=== PATIENT | male | born 2005 | race Two or more races ===

== ENCOUNTER 2025-07-12 21:20 | Emergency (ER) | payer MEDICAID, SELFPAY ==
[2025-07-12 21:22] VITALS: BMI 20.3
[2025-07-12 21:27] VITALS: BP 140/85; PULSE 110; RESP 18; TEMP 36.8; O2SAT 100
--- NOTE | 2025-07-12 21:31 | EKG_ITS ---
[facility] Test Date: 2025-07-12 Pat Name: KELVIN GREENE Department: Room: - Gender: Male [employer] Operator: : 2005 Requested By: Wilbur Cook Order Number: [id number] Reading MD: Wilbur Cook Measurements Intervals [place] Rate: 117 P: 75 CA: 140 QRS: 101 QRSD: 97 T: -9 QT: 340 QTc: 476 Interpretive Statements SINUS TACHYCARDIA RIGHT AXIS DEVIATION [QRS AXIS > 100] INCOMPLETE RIGHT BUNDLE BRANCH BLOCK [90+ ms QRS DURATION, TERMINAL R IN V1/V2, 40+ ms S IN I/aVL/V4/V5/V6] MODERATE T-WAVE ABNORMALITY, CONSIDER INFERIOR ISCHEMIA [-0.1+ mV T-WAVE IN II/aVF] No previous ECG available for comparison /store/S0/[id number]/[id number].pdf
--- NOTE | 2025-07-12 21:43 | PD.EDANX ---
ED Anxiety RME/HPI General Chief Complaint: General Adult/Misc Complain Stated Complaint: CHEST AREA PAIN, HX. ANXIETY Time Seen by Provider: 07/12/25 21:41 Arrival date/time: 07/12/25 21:20 20M with history of anxiety (on hydroxyzine) presents to ED with chest pain and panic attack, intermittently for several weeks. Separately, patient has had several days of cough and congestion. Limitations: no limitations Related Data Previous Rx's ?Medication ?Instructions ?Recorded ibuprofen 600 mg tablet 600 mg PO Q8H PRN fever or pain 04/16/21 #30 tabs Allergies Allergy/AdvReac Type Severity Reaction Status Date / Time No Known Allergies Allergy Verified 07/12/25 21:21 Review of Systems Review of Systems Systems Reviewed: All systems reviewed, normal except as documented ENT Ears, Nose, Mouth, and Throat: Reports as per HPI and Reports nasal congestion Cardiovascular Cardiovascular: Reports as per HPI and Reports chest pain Respiratory Respiratory: Reports as per HPI and Reports cough Psychiatric Psychiatric: Reports as per HPI and Reports panic attacks Past Medical History Past Medical History CARDIAC: Negative Congestive Heart Failure RESPIRATORY: Negative Chronic Obstructive Pulmonary Disease (COPD) GENITOURINARY: Negative Renal Disease ENDOCRINE: Negative Diabetes Mellitus Type 1 or Diabetes Mellitus Type 2 Social History SMOKING STATUS: Never smoker ED Exam General Limitations: Present no limitations General appearance: Present alert and anxious Head Head exam: Present atraumatic Neck Neck exam: Present normal inspection, full ROM and trachea midline Chest Chest inspection: Present normal inspection and symmetric chest wall rise Respiratory Respiratory exam: Present normal lung sounds bilaterally Cardiovascular Cardiovascular exam: Present normal rhythm, tachycardia and normal heart sounds Neurological Exam Neurological exam: Present alert and oriented X3 Psychiatric Psychiatric exam: Present normal affect and anxious Skin Skin exam: Present warm, dry, intact and normal color Course Quality Measures none Orders Category Date Time Status Bedside COVID-19 Antigen Test NOW Care 07/12/25 21:42 Active EKG (ED ONLY) *Do not use* NOW Care 07/12/25 21:31 Active EKG (ED Only) Stat Exams 07/12/25 21:31 Ordered Diazepam [Valium] Med 07/12/25 21:42 Once 5 mg PO X1 ONE Vital Signs Vital signs: Vital Signs Temperature 98.2 F 07/12/25 21:27 Pulse Rate 110 H 07/12/25 21:27 Respiratory Rate 18 07/12/25 21:27 Blood Pressure 140/85 H 07/12/25 21:27 Pulse Oximetry (%) 100 07/12/25 21:27 Oxygen Delivery Method Room Air 07/12/25 21:27 Anxiety MDM Narrative MDM Narrative: 20M with history of anxiety (on hydroxyzine) presents to ED with chest pain and panic attack, intermittently for several weeks. Separately, patient has had several days of cough and congestion. Physical exam reveals clear lungs and normal WOB. Patient is afebrile, alert, but very anxious. EKG is sinus tach of 117. CXR unremarkable. Valium improved symptoms. HR reduced to WNLs upon reassessment. Patient data External records reviewed:: [facility] previous records Clinical information provided by:: patient Social determinants that could affect healthcare access:: mental health Patient has the following chronic illnesses:: anxiety How is presenting disease/condition affected by chronic disease/condition?: exacerbated by Evaluation data The following diagnostics were reviewed and interpreted by me:: lab results and EKG tracing(s) Lab and/or radiology exams considered but not ordered:: ordered Interpretation Summary: above Medications / Prescriptions Medications or Prescriptions considered but not ordered:: ordered Medication administrations:: Medication Administration History Diazepam (Diazepam 5 Mg Tablet) 5 mg PO X1 ONE Stop: 07/12/25 21:43 Consultations Consultation(s) initiated? (list below): No Diagnosis Differential diagnosis anxiety: hyperventilation, panic disorder, acute anxiety and other (URI) Most likely diagnosis given after review of the tests above:: panic attack Admission Indicated Admission indicated?: not indicated Admission Request Was there a request for admission?: No Disposition Plan Disposition Plan: Discharge Discharge Attestation Discharge Attestation: The patient and all family members were given an opportunity to ask questions and understood the discharge instructions. Discharge instructions specifically effects, indications for sooner follow up or return to the emergency department, and the expected course of current diagnosis. Patient condition: Stable Discharge Plan Plan Patient Disposition: HOME (Self Care) Discharge Disposition comment: Stable Prescriptions/Referrals Prescriptions/Med Rec: No Action ibuprofen 600 mg tablet 600 mg PO Q8H PRN (Reason: fever or pain) Qty: 30 0RF Referrals: No Primary/Family,Physician [Primary Care Provider] - In 1 week Problem List Clinical Impression: Panic attack Patient/Caregiver Discharge Instructions Education Materials: Panic Disorder Tx Additional Instructions: Please follow-up with PCP within 24-48 hours and return immediately if symptoms worsen. Print Language: Hungarian Stand Alone Forms: Patient Portal Info Letter PA/RESEARCH STUDY ASSISTANT Supervising Physician PA/RESEARCH STUDY ASSISTANT Supervising Physician: Dr. Bennett
--- NOTE | 2025-07-12 22:02 | XR_ITS ---
Examination: PA lateral chest 2 views Technique: Upright PA lateral chest 2 views Date and time: July 12, 2025 1054 hrs. Indications: Chest pain several weeks Findings: Normal heart size Lungs are clear The osseous structures are intact Impression: No pneumonia or pulmonary edema
[2025-07-12] MEDS: DIAZEPAM 5 MG TABLET PO (22:04)
[2025-07-12 23:50] VITALS: BP 104/70; PULSE 87; RESP 18; TEMP 36.9; O2SAT 98
== END 2025-07-13 00:01 | disposition home or self-care (01) ==
PROVIDERS: Emergency Provider Emergency Medicine
DX: F41.0 Panic disorder [episodic paroxysmal anxiety] (principal); R07.9 Chest pain, unspecified
CPT/HCPCS: 71046; 87811; 93005; 99283; A9270